=== PATIENT | female | born 1935 | race Caucasian/White ===

== ENCOUNTER 2019-02-17 15:32 | Outpatient (CLI) | payer MEDICARE ==
--- NOTE | 2019-02-17 16:46 | RAD ---
Cervical spine 6 views HISTORY: Neck pain. FINDINGS: Vertebral body heights are maintained. Straightening of the normal lordotic curvature. Disc space narrowing most pronounced at the C5-6 and C6-7 levels. There is minimal degenerative spondylolisthesis at these levels. Bulky osteophytosis most pronounced here. No abnormal translationa l motion upon flexion or extension, although there is limited movement. No acute fracture or dislocation. IMPRESSION: Degenerative changes lower cervical spine. No acute osseous abnormalities are demonstrate d.
--- NOTE | 2019-02-17 17:34 | MRI ---
MRI cervical spine. HISTORY: Cervical degenerative disease M50.30. Multi planar multisequence noncontrast enhanced MRI images cervical spine obtained. The spinal cord demonstrates no evidence of areas of significant signal abnormalities. C1-2, C2-3: Unremarkable C3-4: There is a mild area of anterolisthesis of C3 on C4. Central canal is patent. The left neural f oramen is patent. There is moderate right-sided C3-4 neural foraminal narrowing due to osteophyte encroachment. C4-5: No significant degree of central or neural foraminal narrowing seen. C5-6: Disc desiccation and disc space height loss seen. Broad-based anterior and posterior osteophyte s seen. The broad-based posterior osteophytes compress the thecal sac resulting in a moderate degree of central stenosis. Minimal cord compression seen. Mild right and moderate left neural forami nal narrowing seen due to uncovertebral osteophyte hypertrophy. C6-7: Disc desiccation and disc space height loss seen. Broad-based anterior and posterior osteophyte s seen compressing the thecal sac. This results in a moderate degree of central stenosis. There is moderate severe bilateral C6-7 neural foraminal narrowing due to uncovertebral osteophyte hypertrophy . C7-T1: Disc desiccation seen. There is grade 1 anterolisthesis of C7 on T1. Moderate left-sided neura l foraminal narrowing seen. T1-2: Unremarkable. IMPRESSION: extensive C5-6, C6-7 and C7-T1 changes of spondylosis.
== END 2019-02-17 15:33 | disposition home or self-care (01) ==
LOC: MRI 15:32
PROVIDERS: ATTEND Physician Assistant Surgical
DX: M50.30 Other cervical disc degeneration, unspecified cervical region (principal); M54.12 Radiculopathy, cervical region; M48.02 Spinal stenosis, cervical region; M47.812 Spondylosis without myelopathy or radiculopathy, cervical region; M47.813 Spondylosis without myelopathy or radiculopathy, cervicothoracic region
CPT/HCPCS: 72050; 72141